=== PATIENT | male | born 2000 | race African-American/Black ===

== ENCOUNTER 2019-11-09 18:28 | Inpatient (IN) ==
[2019-11-09] MEDS ORDERED: ONDANSETRON 4 MG/2 ML VIAL ONE (18:33)
[2019-11-09] MEDS ORDERED: fentaNYL 100 MCG/2 ML VIAL ONE (18:33)
[2019-11-09] MEDS ORDERED: ONDANSETRON 4 MG/2 ML VIAL IV STA (18:38)
[2019-11-09] MEDS ORDERED: SODIUM CHLORIDE 0.9% 1,000 ML IV STA (18:38)
[2019-11-09] MEDS ORDERED: fentaNYL 100 MCG/2 ML VIAL IV STA (18:38)
[2019-11-09] MEDS ORDERED: DIPH/TET/ACEL PERT BOOSTER VACCINE 0.5 ML VIAL IM ONE (18:38)
[2019-11-09] MEDS ORDERED: ACETAMINOPHEN 325 MG TABLET PO PRN (19:18)
[2019-11-09] MEDS ORDERED: ONDANSETRON 4 MG/2 ML VIAL IV PRN (19:18)
[2019-11-09 19:35] LABS: Apearance,Urine CLEAR (Clear); Bilirubin,Urine Negative (Negative); Blood, Urine Negative (Negative); Glucose,Urine (UA) Negative (Negative); Ketones,Urine Negative (Negative); Mucus,Urine Occasional /LPF (Occasional); Nitrite,Urine Negative (Negative); Protein,Urine Negative; Urine Color Yellow (Yellow); Urine Specific Gravity 1.032 (1.001-1.035); Urine Urobilinogen < 2.0 EU/DL (0.2-1.0)
[2019-11-09] MEDS: MORPHINE 4 MG/1 ML VIAL IV PRN (19:39)
[2019-11-09 19:50] LABS: Barbiturates Screen,Urine Negative (Negative); Benzodiazepines Screen,Urine Negative (Negative); Cannabinoid Screen,Urine Positive (Negative); Opiate Screen,Urine Negative (Negative); Phencyclidine Screen,Urine Negative (Negative)
[2019-11-09 20:19] LABS: Basophils % 0.6 % (0.0-0.8); Eosinophils # 0.1 10*3/uL (0.0-0.87); Eosinophils % 1.5 % (0.00-10.9); Hematocrit 45.5 VOL% (42.0-52.0); Immature Granulocytes % 0.1 %; Immature Granulocytes Absolute 0.01 #; Lymphocytes # 4.7 10*3/uL (1.4-4.0); Lymphocytes % 68.4 % (21.2-54.2); Mean Corpuscular Volume 87.5 FL (87-102); Mean Platelet Volume 12.7 FL (9.6-12.0); Monocytes % 9.6 % (1.7-12.7); Neutrophils % 19.8 % (38.7-73.9); Platelet Count 188 T/CUMM (130-400); Red Cell Distribution Width 13.5 % (9.3-17.3); White Blood Count 6.8 T/CUMM (4-12)
[2019-11-09 20:52] LABS: Eosinophils 1 % (0-10); Lymphocytes 74 % (20-55); Segmented Neutrophils 17 % (50-85); Total Cells Counted 100
[2019-11-09 20:53] LABS: INR 1.1; PT Patient Result 11.5 SECS (9.8-11.9); Platelet Estimate Normal; Reactive Lymphocytes 1+
[2019-11-09] MEDS: DEXTROSE 5% LACTATED RINGERS 1,000 ML IV SCH (22:18)
[2019-11-09] MEDS: ceFAZolin 1,000 MG in SYRINGE 1 EACH IV SCH (23:35)
[2019-11-10] MEDS: MORPHINE 4 MG/1 ML VIAL IV PRN (01:27)
[2019-11-10] MEDS: ceFAZolin 1,000 MG in SYRINGE 1 EACH IV SCH ×4 (05:22→23:44)
[2019-11-10] MEDS: DEXTROSE 5% LACTATED RINGERS 1,000 ML IV SCH ×2 (05:23→13:07)
[2019-11-10] MEDS ORDERED: GENTAMICIN INJ 120 MG in SODIUM CHLORIDE 0.9% 100 ML IV ONE (08:00)
[2019-11-10] MEDS ORDERED: GENTAMICIN INJ 120 MG in PREMIX 1 EACH IV ONE (08:00)
[2019-11-10] MEDS ORDERED: GENTAMICIN 80 MG/2 ML VIAL ONE (08:06)
[2019-11-10] MEDS ORDERED: BACITRACIN OINT 0.9 GM PACK TOP ONE ×2 (09:10→10:06)
[2019-11-10] MEDS ORDERED: MORPHINE 4 MG/1 ML VIAL IV PRN (10:35)
[2019-11-10] MEDS ORDERED: diphenhydrAMINE CAP 25 MG CAPSULE PO PRN (10:35)
[2019-11-10] MEDS ORDERED: MAGNESIUM HYDROXIDE SUSP 30 ML UDCUP PO PRN (10:35)
[2019-11-10] MEDS ORDERED: KETOROLAC 30 MG/1 ML VIAL IV PRN (10:35)
[2019-11-10] MEDS ORDERED: ROPIVACAINE 0.5% 30 ML VIAL ONE (10:39)
[2019-11-10] MEDS ORDERED: DEXAMETHASONE 4 MG/1 ML VIAL ONE ×2 (10:40→11:12)
[2019-11-10] MEDS ORDERED: SEVOFLURANE 1 UNIT/15 MINUTE INH ONE (11:11)
[2019-11-10] MEDS ORDERED: MIDAZOLAM 2 MG/2 ML VIAL ONE (11:11)
[2019-11-10] MEDS ORDERED: propofoL 200 MG/20 ML VIAL IV ONE (11:11)
[2019-11-10] MEDS ORDERED: LIDOCAINE 2% 5 ML VIAL ONE (11:11)
[2019-11-10] MEDS ORDERED: fentaNYL 100 MCG/2 ML VIAL ONE (11:11)
[2019-11-10] MEDS ORDERED: ROCURONIUM 100 MG/10 ML VIAL IV ONE (11:12)
[2019-11-10] MEDS ORDERED: PHENYLEPHRINE 1 MG/10 ML SYRINGE IV ONE (11:12)
[2019-11-10] MEDS ORDERED: GLYCOPYRROLATE 0.4 MG/2 ML VIAL ONE (11:12)
[2019-11-10] MEDS ORDERED: KETOROLAC 30 MG/1 ML VIAL ONE (11:12)
[2019-11-10] MEDS ORDERED: ePHEDrine 50 MG/ML AMP ONE (11:12)
[2019-11-10] MEDS ORDERED: SUCCINYLCHOLINE 200 MG/10 ML VIAL ONE (11:12)
[2019-11-10] MEDS ORDERED: ONDANSETRON 4 MG/2 ML VIAL ONE (11:12)
[2019-11-10] MEDS ORDERED: LACTATED RINGERS 1,000 ML IV ONE (11:13)
[2019-11-10] MEDS ORDERED: NEOSTIGMINE 10 MG/10 ML VIAL ONE (11:13)
[2019-11-10] MEDS: PANTOPRAZOLE 40 MG TABLET PO SCH (13:05)
[2019-11-10] MEDS ORDERED: PROMETHAZINE 25 MG/1 ML VIAL IM PRN (17:31)
[2019-11-11] MEDS: MORPHINE 4 MG/1 ML VIAL IV PRN (03:58)
[2019-11-11] MEDS: ceFAZolin 1,000 MG in SYRINGE 1 EACH IV SCH ×2 (05:22→11:37)
[2019-11-11 06:17] LABS: Basophils % 0.1 % (0.0-0.8); Hematocrit 33.1 VOL% (42.0-52.0); Hemoglobin 11.1 GM/DL (14.0-18.0); Immature Granulocytes % 0.3 %; Immature Granulocytes Absolute 0.04 #; Lymphocytes # 1.8 10*3/uL (1.4-4.0); Lymphocytes % 12.7 % (21.2-54.2); Mean Corpuscular HGB Conc 33.5 GM/DL (32-36); Mean Corpuscular Volume 85.8 FL (87-102); Mean Platelet Volume 11.6 FL (9.6-12.0); Monocytes % 12.5 % (1.7-12.7); Neutrophils % 74.4 % (38.7-73.9); Platelet Count 140 T/CUMM (130-400); Red Blood Count 3.86 MC/CUMM (3.8-5.5); Red Cell Distribution Width 13.4 % (9.3-17.3); White Blood Count 13.9 T/CUMM (4-12)
[2019-11-11 07:00] LABS: Anisocytosis Slight; Lymphocytes 16 % (20-55); Platelet Estimate Adequate; Segmented Neutrophils 69 % (50-85); Total Cells Counted 100
[2019-11-11 07:01] LABS: Burr Cells Few; Poikilocytosis Slight
[2019-11-11] MEDS: PANTOPRAZOLE 40 MG TABLET PO SCH (09:10)
[2019-11-11 11:41] VITALS: BP 147/88
== END 2019-11-11 13:00 | disposition home or self-care (01) | DRG 492 ==
LOC: EDUNIT# → N.ED 18:28 → N.EDINP 19:18 → N.3E 19:53
PROVIDERS: ADMIT Surgery; ATTEND Surgery